=== PATIENT | female | born 1955 | race American Indian/Alaskan Native ===

== ENCOUNTER 2017-03-17 16:43 | Emergency (ER) | payer BC ==
--- NOTE | 2017-03-17 17:52 | Emergency Department Report ---
ED Upper Extremity Inj HPI - General Chief Complaint: Extremity Injury, Upper Stated Complaint: R WRIST PAIN Time Seen by Provider: 03/17/17 17:43 Source: patient Mode of arrival: Ambulatory Limitations: No Limitations - History of Present Illness Complaint: Injury to:: right, wrist -: Sudden, days(s) Other Extremity Injury: Wrist: Right Other Injuries: none Handedness: right Place: work Improves With: immobilization Worsens With: movement of extremity Context: fall (glf while at work) Associated Symptoms: denies other symptoms. denies: weakness, numbness, neck pain Treatments Prior to Arrival: cold therapy, NSAIDS - Related Data Previous Rx's Medication Instructions Recorded Last Taken Type traMADol [Ultram] 50 mg PO Q6HR PRN #20 tablet 03/17/17 Unknown Rx Allergies Allergy/AdvReac Type Severity Reaction Status Date / Time banana Allergy Unknown Verified 03/17/17 17:11 grape Allergy Unknown Verified 03/17/17 17:11 ED Review of Systems ROS: Stated complaint: R WRIST PAIN Other details as noted in HPI Comment: All other systems reviewed and negative Musculoskeletal: other (r wrist pain sp fall at hosp) ED Past Medical Hx - Past Medical History Hx Hypertension: Yes - Surgical History Additional Surgical History: Tubaligation, rectal fissure repair - Social History Smoking Status: Never Smoker Substance Use Type: None - Medications Home Medications: Home Medications Medication Instructions Recorded Confirmed Last Taken Type traMADol [Ultram] 50 mg PO Q6HR PRN #20 tablet 03/17/17 Unknown Rx ED Physical Exam - General Limitations: No Limitations General appearance: alert - Head Head exam: Present: atraumatic - Eye Eye exam: Present: PERRL - ENT ENT exam: Present: mucous membranes moist - Neck Neck exam: Present: normal inspection - Respiratory Respiratory exam: Present: normal lung sounds bilaterally - Cardiovascular Cardiovascular Exam: Present: regular rate (100 on exam) - GI/Abdominal GI/Abdominal exam: Present: soft - Rectal Rectal exam: Present: deferred - Expanded Upper Extremity Exam Right Shoulder Exam: Present: normal inspection Upper Arm exam: Present: normal inspection Elbow exam: Present: normal inspection Forearm Wrist exam: Present: tenderness (at distal rad head), swelling. Absent : abrasion, laceration, ecchymosis, deformity, crepidus, dislocation, erythema, tenderness over anatomical snuff box, pain with axial thumb loading Hand Wrist exam: Present: normal inspection. Absent: swelling, subungual hematoma - Back Exam Back exam: Present: normal inspection - Neurological Exam Neurological exam: Present: alert, oriented X3 - Psychiatric Psychiatric exam: Present: normal affect, normal mood - Skin Skin exam: Present: warm, dry, intact, normal color ED Course Vital Signs 03/17/17 03/17/17 17:11 17:53 Temperature 97.9 F Pulse Rate 109 H 85 Respiratory 15 20 Rate Blood Pressure 213/92 Blood Pressure 180/77 [Right] O2 Sat by Pulse 100 100 Oximetry - Reevaluation(s) Reevaluation #1: 03/17/17 18:45 employee here while at work went to sit on chair and chair came from under her on out stretched hand she fell now r wrist pain and swelling n/v intact ulnar/radial/medial nerve intact good rad and ulnar pulses no snuff box tenderness splint fu with ortho per wc procedures. ED Medical Decision Making - Radiology Data Radiology results: report reviewed, image reviewed - Medical Decision Making see note - Differential Diagnosis ro fx Critical care attestation.: If time is entered above; I have spent that time in minutes in the direct care of this critically ill patient, excluding procedure time. ED Disposition Clinical Impression: Radius fracture Disposition: DC- TO HOME OR SELFCARE Is pt being admited?: No Does the pt Need Aspirin: No Condition: Stable Instructions: Arm Fracture in Adults (ED) Referrals: PRIMARY MD HOWARD [Primary Care Provider] - 3-5 Days TABATHA HARDY MD [Staff Physician] - 3-5 Days Forms: Work/School Release Form(ED) Time of Disposition: 18:41
[2017-03-17 17:53] VITALS: BP 180/77
--- NOTE | 2017-03-17 18:44 | XRay Report ---
FINAL REPORT EXAM: XR WRIST 3+V RT HISTORY: swelling and pain TECHNIQUE: Three views of the right wrist. PRIORS: None. FINDINGS: There is an acute, oblique, intra-articular fracture of the right distal radius. No dislocation. Normal mineralization. There is soft tissue swelling surrounding the right wrist. IMPRESSION: Acute right distal radius fracture.
== END 2017-03-17 19:11 | disposition home or self-care (01) ==
LOC: ED 16:43
DX: S52.501A Unspecified fracture of the lower end of right radius, initial encounter for closed fracture (principal); I10 Essential (primary) hypertension; X58.XXXA Exposure to other specified factors, initial encounter; Y93.89 Activity, other specified; Y99.8 Other external cause status; Y92.89 Other specified places as the place of occurrence of the external cause; Z91.018 Allergy to other foods

== ENCOUNTER 2018-08-29 08:59 | Outpatient (CLI) | payer BC ==
--- NOTE | 2018-08-29 10:34 | Mammography Report ---
BILATERAL DIGITAL SCREENING MAMMOGRAM with CAD: 08/29/18 08:59:00 CLINICAL: Routine screening. COMPARISON:None available. FINDINGS: The breasts are heterogeneously dense, which may obscure small masses. No mass, architectural distortion or suspicious calcifications. IMPRESSION: No mammographic evidence of malignancy. BI-RADS CATEGORY: 1 - - Negative RECOMMENDATION: Routine mammographic screening in one year. COMMENT: Patient follow-up letters are generated by our [employer] application.
== END 2018-08-29 09:00 | disposition home or self-care (01) ==
LOC: MAMMO 08:59
PROVIDERS: ATTEND Internal Medicine
DX: Z12.31 Encounter for screening mammogram for malignant neoplasm of breast (principal); I10 Essential (primary) hypertension
CPT/HCPCS: 77067

== ENCOUNTER 2020-06-16 09:42 | Outpatient (CLI) | payer BC ==
--- NOTE | 2020-06-16 10:26 | XRay Report ---
CHEST 2 VIEWS INDICATION: ESSENTIAL (PRIMARY) HYPERTENSION. COMPARISON: None FINDINGS: Support devices: None. Heart: Within normal limits. Lungs/pleura: No acute air space or interstitial disease. No pneumothorax. Additional findings: None. IMPRESSION: Unremarkable chest films Signer Name: Ruperto Walker Jr, MD Signed: 06/16/2020 10:22 AM Workstation Name: [id number]
== END 2020-06-16 09:43 | disposition home or self-care (01) ==
LOC: XRAY 09:42
DX: I10 Essential (primary) hypertension (principal)
CPT/HCPCS: 71046

== ENCOUNTER 2020-07-10 15:03 | Outpatient (CLI) | payer BC ==
--- NOTE | 2020-06-19 10:25 | Electrocardiograph Report ---
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
--- NOTE | 2020-07-10 18:01 | Mammography Report ---
DIGITAL SCREENING MAMMOGRAM WITH CAD, 07/10/2020 CLINICAL INFORMATION / INDICATION: Routine screening mammography. SCREENING MAMMO TECHNIQUE: Digital bilateral 2D mammography was obtained in the craniocaudal and mediolateral obliqu e projections. This examination was interpreted with the benefit of Computer-Aided Detection analysis . COMPARISON: 08/29/2018. FINDINGS: Breast Density: The breasts are heterogeneously dense, which may obscure small masses. No dominant mass, suspicious calcifications, or architectural distortion in either breast. IMPRESSION: No mammographic evidence of malignancy. Follow up recommendation: Routine yearly BI-RADS Category 1: Negative. A "normal" or negative report should not discourage follow up or biopsy of a clinically significant f inding. A written summary of these findings will be mailed to the patient. The patient will be entered into a mammography reporting system which will generate a reminder letter for the patient's next appointmen t at the appropriate interval. The [employer] recommends yearly mammograms starting at age 40 and continuing as l zabrina as a woman is in good health. Breast MRI is recommended for women with an approximate 20-25% or greater lifetime risk of breast cancer, including women with a strong family history of breast or ova keri cancer or who have been treated for Hodgkin's disease. Signer Name: Dennis Lemon MD Signed: 07/10/2020 5:57 PM Workstation Name: [id number]
== END 2020-07-10 15:04 | disposition home or self-care (01) ==
LOC: MAMMO 15:03
PROVIDERS: ATTEND Internal Medicine
DX: Z12.31 Encounter for screening mammogram for malignant neoplasm of breast (principal)
CPT/HCPCS: 77067; 93005